=== PATIENT | male | born 1980 | race Caucasian/White ===

== ENCOUNTER 2017-01-13 22:32 | Inpatient (IN) | payer OTHER ==
--- NOTE | ~2017-01-13 | PN ---
Unit #: [id number] #: [id number] Patient: EARNEST JOSE [id number] [facility] [address] [place] [address] [id number] MR#: [id number] NAME: EARNEST JOSE. ROOM: P174 Age: 36 Sex: M Admission Date: 01/14/2017 : 1980 Attending Physician: Krystal Schmidt M.D. Admitting Physician: Krystal Schmidt M.D. Primary Care Physician: Primary Care Physician Elenita CHAKRABORTY PROGRESS NOTES DATE January 19, 2017 DISCUSSION Mr. Jose is a 36-year-old white male, who was seen today and chart was reviewed and the case was discussed with the staff. He has been anxious, withdrawn, and rather seclusive to himself. Meanwhile, he has been cooperative with the treatment recommendations and he has been taking the medications and tolerating them fairly well with no reported side effects. MENTAL STATUS EXAMINATION Young white male, who was casually dressed with fair personal hygiene and appears to be in no acute distress or discomfort. He was awake and alert on interaction with intact orientation. His mood is anxious with a congruent affect. He denies any suicidal or homicidal ideations, and also denies any auditory or visual hallucinations. His insight and judgment remain slightly impaired. TREATMENT PLAN 1. We will continue him on his current medications and treatment protocol, and will monitor his response to the medications, and make further adjustments as needed. 2. We will continue to followup. Dictated by... Emilia Desir/meghan TD: 01/20/2017 12:44 JOB #: [id number] Unit #: [id number] #: [id number] Patient: EARNEST JOSE PROGRESS NOTES Page 1 of 1 X Krystal Schmidt MD PROGRESS NOTE
--- NOTE | ~2017-01-13 | PN ---
Unit #: [id number] #: [id number] Patient: EARNEST JOSE [id number] [facility] [address] [place] [address] [id number] I MR#: [id number] NAME: EARNEST JOSE. ROOM: P174 Age: 36 Sex: M Admission Date: 01/14/2017 : 1980 Attending Physician: Krystal Schmidt M.D. Admitting Physician: Emilia Desir PROGRESS NOTES DATE OF SERVICE: 01/17/2017 SUBJECTIVE Mr. Jose is a 36-year-old white male, who was seen today and chart was reviewed and case was discussed with the staff. He has been anxious, withdrawn, and seclusive to himself, and appears to be in some distress he has been taking medications and tolerating them fairly well with no reported side effects. MENTAL STATUS EXAMINATION Young white male, who was casually dressed with marginal personal hygiene, appears to be in no acute distress or discomfort. He was awake and alert with impaired attention and concentration. His mood was anxious with congruent affect. His speech was slow and restricted in content. He denies any suicidal or homicidal ideation and also denies any auditory or visual hallucinations. His insight and judgment remain slightly impaired. TREATMENT PLAN 1. We will continue him on his current medications and treatment protocol. We will monitor his response to medications and make further adjustments as needed. 2. We will continue to follow up. Dictated by... Emilia Desir/juanita TD: 01/18/2017 15:32 JOB #: [id number] [facility] PROGRESS NOTES Page 1 of 1 X Krystal Schmidt MD PROGRESS NOTE
--- NOTE | ~2017-01-13 | PN ---
Unit #: [id number] #: [id number] Patient: EARNEST JOSE [id number] [facility] [address] [place] [address] [id number] MR#: [id number] NAME: EARNEST JOSE. ROOM: P174 Age: 36 Sex: M Admission Date: 01/14/2017 : 1980 Attending Physician: Krystal Schmidt M.D. Admitting Physician: Emilia Desir PROGRESS NOTES DATE OF SERVICE: 01/15/2017 SUBJECTIVE Mr. Jose 36-year-old white male with substance abuse and mood disorder, who was seen today and chart was reviewed, and case was discussed with the staff. He was seen to be anxious, withdrawn, and rather seclusive to himself. Meanwhile, he has been cooperative with treatment recommendations and has been taking the medications and start describes himself to be in distress and discomfort. MENTAL STATUS EXAMINATION Young white male who was casually dressed with marginal personal hygiene, appears to be in distress and discomfort. He was awake and alert with impaired attention and concentration. His mood was anxious with a congruent affect. He denies any suicidal or homicidal ideations. His insight and judgment remain slightly impaired. TREATMENT PLAN 1. We will continue him on his current medications and treatment protocol. We will monitor his response and make further adjustments as needed. 2. We will continue to follow up. Dictated by... Emilia Desir/juanita TD: 01/16/2017 15:31 JOB #: [id number] [facility] PROGRESS NOTES Page 1 of 1 X Krystal Schmidt MD PROGRESS NOTE
--- NOTE | ~2017-01-13 | PN ---
Unit #: [id number] #: [id number] Patient: EARNEST JOSE [id number] [facility] [address] [place] [address] [id number] I MR#: [id number] NAME: EARNEST JOSE. ROOM: P174 Age: 36 Sex: M Admission Date: 01/14/2017 : 1980 Attending Physician: Krystal Schmidt M.D. Admitting Physician: Krystal Schmidt M.D. Primary Care Physician: Primary Care Physician Elenita FRENCH NOTES DATE 01/16/2017 DISCUSSION Mr. Jose is a 36-year-old, white male who was seen today and chart was reviewed and case was discussed with the staff. He has been anxious, withdrawn and rather seclusive to himself. He appears to be in some distress and discomfort as he goes through detox. Meanwhile, he has been cooperative with treatment recommendations. He has been taking medications and tolerating them fairly well with no reported side effects. MENTAL STATUS EXAM Young white male who was casually dressed with marginal personal hygiene, appears to be in some distress and discomfort. He was awake and alert with impaired attention and concentration. His mood was anxious with congruent affect. His speech was slow restricted in content. He denies any suicidal or homicidal ideation. Also, denies any auditory or visual hallucinations. His insight and judgement remains slightly impaired. TREATMENT PLAN 1. We will continue him on his current treatment protocol. We will monitor his response to the medication and make further adjustments as needed. 2. We will continue to follow up. Dictated by... Emilia Desir/mirna TD: 01/17/2017 08:01 JOB #: [id number] Unit #: [id number] #: [id number] Patient: EARNEST JOSE PEADAMIEN PROGRESS NOTES Page 1 of 1 X Krystal Schmidt MD PROGRESS NOTE
--- NOTE | ~2017-01-13 | PN ---
Unit #: [id number] #: [id number] Patient: EARNEST JOSE [id number] [facility] [address] [place] [address] [id number] I MR#: [id number] NAME: EARNEST JOSE. ROOM: P174 Age: 36 Sex: M Admission Date: 01/14/2017 : 1980 Attending Physician: Krystal Schmidt M.D. Admitting Physician: Krystal Schmidt M.D. Primary Care Physician: Primary Care Physician Elenita FRENCH NOTES DATE 01/20/2017 DISCUSSION Mr. Jose is a 36-year-old, white man who was seen today and chart was reviewed and case was discussed with the staff. He has been anxious, withdrawn and rather seclusive to himself. Meanwhile, he has been cooperative with treatment recommendation. He has been taking medications and tolerating them fairly well with no reported side effects. MENTAL STATUS EXAM Young white male who was casually dressed with fair personal hygiene, appears to be in no acute distress or discomfort. He was awake and alert on interaction with intact orientation. His mood was anxious with congruent affect. He denies any suicidal or homicidal ideation. Also, denies any auditory or visual hallucinations. His insight and judgement remains slightly impaired. TREATMENT PLAN 1. We will continue him on his current medications and treatment protocol. We will monitor his response to the medication and make further adjustments as needed. 2. We will continue to follow up. Dictated by... Emilia Desir/mirna TD: 01/20/2017 23:57 JOB #: [id number] Unit #: [id number] #: [id number] Patient: EARNEST JOSE [facility] PROGRESS NOTES Page 1 of 1 X Krystal Schmidt MD PROGRESS NOTE
--- NOTE | ~2017-01-13 | PA ---
Unit #: [id number] #: [id number] [facility] [id number] [facility] [address] [place] [address] [id number] MR#: [id number] NAME: EARNEST JOSE. ROOM: P174 Age: 36 Sex: M Admission Date: 01/14/2017 : 1980 Date of Assessment: 01/14/2017 Attending Physician: Krystal Schmidt M.D. Admitting Physician: Krystal Schmidt M.D. Primary Care Physician: Primary Care Physician No PSYCHIATRIC ASSESSMENT IDENTIFYING DATA Mr. Jose is a 36-year-old white male, who is a resident of [place], [place], and was self-referred to the hospital on voluntary basis. CHIEF COMPLAINT "Relapse on the day I am being discharged from this facility." HISTORY OF PRESENT ILLNESS Mr. Jose is a 36-year-old white male, who reported that he was discharged from this facility in June 21, 2016 and relapsed on the same day in July. He went to inpatient for 30 days for rehab level of care and then he relapsed a month ago using half a gram daily of methamphetamine using heroin 1 to 2 times a week to help come down off meth and reports being depressed and feeling hopeless and helpless and wanting to , then keeps using drugs again and reports that he was kicked out of the house by his due to his drug use and he has tried to get a guide to use his gun to end his life, when he charged towards him, wanting to , and the patient reports that he has had thoughts of ending his life by using heroin to never wake up and does report increased depression, anxiety, feelings of hopelessness and helplessness, and suicidal ideation with intent and plan and as such, recommendation for inpatient level of care for safety and stabilization was made. SUBSTANCE ABUSE HISTORY The patient reports history of experimentation abuse of cannabis, cocaine, acid, opioids, and methamphetamine, and currently methamphetamine has been his drug of choice and reports that he has been using IV methamphetamine and has been going on binges. PAST PSYCHIATRIC HISTORY The patient has had a history of inpatient chemical dependency treatment at [facility] several times in addition to being at review of the medical records indicate that currently he is not active in treatment program, and is not seeing a psychiatrist, and is not taking any psychotropic medications. PAST MEDICAL HISTORY Hepatitis C, chronic back pain, herniated disc, and spinal stenosis. ALLERGIES No known medication allergies. Unit #: [id number] #: [id number] Patient: EARNEST JOSE PERSONAL AND SOCIAL HISTORY A 36-year-old white male, who reports that he is and and currently describes himself to be homeless and has poor social support system. MENTAL STATUS EXAMINATION Young white male, who was casually dressed with fair personal hygiene, appears to be in no acute distress or discomfort. He was awake and alert on interaction with intact orientation to time, place, and person. His mood was anxious and depressed with a congruent affect. His speech was slow and restricted in content. He reports having suicidal ideations, but denies any homicidal ideations, and also denies any auditory or visual hallucinations. His insight and judgment remain significantly impaired. DIAGNOSTIC IMPRESSION Psychiatric: Major depressive disorder, recurrent, moderate, without psychotic features; methamphetamine dependence, moderate; opioid dependence, moderate. Medical: Hepatitis C, herniated disc, chronic pain, spinal stenosis. Stressors: Moderate psychosocial stressors. TREATMENT PLAN 1. The patient has presented with history of substance abuse and mood disorder, and has been decompensating and will need inpatient hospitalization for safety and stabilization. We will start him back on his home medications. We will adjust the medications and monitor response. 2. Supportive therapy was provided to the patient. 3. Safe, structured, and nourishing environment will be reported. ESTIMATED LENGTH OF STAY 5 to 7 days. ABILITY TO HELP SELF Limited. WILLINGNESS TO HELP SELF The patient appears to be willing to help self. STRENGTHS 1. Communicative. 2. Cooperative. PROBLEMS 1. Chronic dysphoric symptoms. 2. Poor social support system. DISCHARGE CRITERIA This will be contingent upon the patient's ability to show resolution of his depression and anxiety and his ability to stay safe to himself, particularly after discharge from the hospital. Dictated by..Emilia Foster/juanita TD: 01/14/2017 06:54 Unit #: [id number] #: [id number] Patient: EARNEST JOSE JOB #: [id number] PSYCHIATRIC ASSESSMENT Page 1 of 1 X Krystal Schmidt MD PSYCHIATRIC ASSESSMENT
--- NOTE | ~2017-01-13 | HP ---
Unit #: [id number] #: [id number] Patient: EARNEST JOSE [id number] [place] [address] [id number] I MR#: [id number] NAME: EARNEST JOSE. ROOM: P174 Age: 36 Sex: M Admission Date: 01/14/2017 : 1980 Attending Physician: Krystal Schmidt M.D. Admitting Physician: Krystal Schmidt M.D. Primary Care Physician: Primary Care Physician No HISTORY AND PHYSICAL HISTORY OF PRESENT ILLNESS Earnest is a 36 year old admitted to [facility] because of his continued polysubstance abuse. He has had numerous admissions to this facility for the same. PAST MEDICAL HISTORY 1. Long history of illicit substance abuse to include IV drugs. 2. Hepatitis C. 3. Obesity. 4. Degenerative disc disease. PAST SURGICAL HISTORY 1. Cholecystectomy. 2. Right knee. 3. Left elbow. ALLERGIES No known drug allergies. SOCIAL HISTORY Smokes 1 pack per day. Denies alcohol. Admits to a long history of illicit substance abuse to include heroin and methamphetamine. FAMILY HISTORY Medically noncontributory. REVIEW OF SYSTEMS CONSTITUTIONAL: No fever or chills. HEENT: Denies any sore throat, ear pain or runny nose. CARDIOVASCULAR: Denies chest pain, irregular heart rhythm or palpitations. CHEST: Denies shortness of breath or cough. No hemoptysis. GASTROINTESTINAL: Denies nausea, vomiting, diarrhea or chronic constipation. ENDOCRINE: Denies history of increased thirst or urination. No recent significant weight loss or gain. GENITOURINARY: Denies dysuria, frequency, or hematuria. SKIN: Denies any rashes. HEMATOLOGIC: Denies history of increased bleeding or bruising. MUSCULOSKELETAL: Denies any hot, swollen joints. No generalized muscle pain. NEUROLOGIC: Denies problems with vision or speech. No frequent, severe headaches. No numbness, tingling or weakness in any extremities. Denies loss of bladder or bowel control. Unit #: [id number] #: [id number] Patient: EARNEST JOSE CURRENT MEDICATIONS 1. Wellbutrin XL 150 mg q.a.m. 2. Neurontin 800 mg t.i.d. 3. Milk of Magnesia p.r.n. 4. Maalox p.r.n. 5. Tylenol p.r.n. PHYSICAL EXAMINATION GENERAL: Alert, well-nourished, no apparent distress. VITAL SIGNS: Blood pressure 140/100, heart rate 80, respirations 16, temperature 98.6. WEIGHT: 210. HEIGHT: 5 feet 11 inches. SKIN: Warm and dry without rash or lesion. HEENT: Normocephalic. TMs not viewed. Oral and nasal passages clear. Conjunctivae clear. PERRLA. EOMs intact. NECK: Supple without lymphadenopathy or thyromegaly. HEART: Regular rate and rhythm without murmur. LUNGS: Clear. ABDOMEN: Soft, nontender. : Not done. EXTREMITIES: No evidence of cyanosis, clubbing or edema. Moves all without focal deficit. NEUROLOGICAL: Grossly within normal limits. Cranial Nerves: II: Visual benavidez are intact. III, IV AND : Extraocular movements are intact. Pupils are equal, round and reactive to light. V: Facial sensation is grossly normal. VII: Facial movements and expression are normal. VIII: Auditory acuity grossly intact. IX, X: Uvula is midline. Phonation is normal. XI: Patient shrugs shoulders and turns head normally. XII: Tongue protrudes in the midline. Sensory and Motor Function: Sensory and motor sensation is grossly normal. Motor: moves all extremities well. Coordination: Gait is normal. Deep Tendon Reflexes: Intact. IMPRESSION 1. Psychiatric admission. 2. High blood pressure, although he gives no prior history on admission. RECOMMENDATIONS PSYCHIATRIC: Per psychiatrist. MEDICAL: 1. See no contraindications to participate in facility's activities. 2. Monitor blood pressure q. shift. If remains high, will need to address. MEDICAL PROGNOSIS Good. MEDICAL CONDITION Stable. Dictated by... Unit #: [id number] #: [id number] Patient: EARNEST JOSE Osmany Reyes-Dileep. for Emilia Valencia/aiden TD: 01/14/2017 21:22 JOB #: [id number] HISTORY AND PHYSICAL Page 1 of 1 X Symone Hoyt X HISTORY AND PHYSICAL
--- NOTE | ~2017-01-13 | DS ---
Unit #: [id number] #: [id number] [facility]: [facility] [id number] [facility] [address] [place] [address] [id number] MR#: [id number] NAME: EARNEST JOSE. ROOM: P174 Age: 36 Sex: M Admission Date: 01/14/2017 : 1980 Discharge Date: 01/21/2017 Attending Physician: Krystal Schmidt M.D. Primary Care Physician: Primary Care Physician No DISCHARGE SUMMARY IDENTIFYING DATA Mr. Dunham is a 36-year-old white male, who is a resident of [place], [place] and was self-referred to the hospital on a voluntary basis. DISCHARGE DIAGNOSES Psychiatric: Major depressive disorder, recurrent, moderate, without psychotic features; methamphetamine dependence, moderate; opioid dependence, moderate. Medical: Hepatitis C, herniated disks, chronic pain, and spinal stenosis. Stressors: Mild psychosocial stressors. HISTORY OF PRESENT ILLNESS Please see initial psychiatric evaluation for details. PAST PSYCHIATRIC HISTORY Please see initial psychiatric evaluation for details. PAST MEDICAL HISTORY Please see initial psychiatric evaluation for details. HOSPITAL COURSE The [facility] and was oriented to the hospital environment. Routine p.r.n. medications were initiated, and he was started back on his home medications and detox protocol was initiated as well and Wellbutrin XL was initiated at 150 mg a day. He was seen to be anxious, withdrawn, and rather seclusive to himself and was not coming out, socializing, interacting, or participating in treatment related activities and once he started feeling better, he was pushing to leave and was not really showing much motivation towards treatment; however, he was denying any suicidal ideations, intent, or plan and was not seen to be danger to self or anyone else, and as such, it was decided that he will be discharged home and will continue treatment on an outpatient basis. DISCHARGE MEDICATIONS Wellbutrin XL 150 mg in the morning. DISCHARGE CONDITION Stable. PROGNOSIS Fair. Unit #: [id number] #: [id number] Patient: EARNEST JOSE Dictated by... Krystal Schmidt M.D. IAA/modl TD: 01/21/2017 06:22 JOB #: [id number] DISCHARGE SUMMARY Page 1 of 1 X Krystal Schmidt MD DISCHARGE SUMMARY
--- NOTE | ~2017-01-13 | PN ---
Unit #: [id number] #: [id number] Patient: EARNEST JOSE [id number] [facility] [address] [place] [address] [id number] MR#: [id number] NAME: EARNEST JOSE. ROOM: P174 Age: 36 Sex: M Admission Date: 01/14/2017 : 1980 Attending Physician: Krystal Schmidt M.D. Admitting Physician: Krystal Schmidt M.D. Primary Care Physician: Primary Care Physician Elenita CHAKRABORTY PROGRESS NOTES DATE 01/18/2017 DISCUSSION Mr. Craft is a 36-year-old, white male who was seen today and chart was reviewed and case was discussed with the staff. He has been anxious, withdrawn and was seclusive to himself as he has been laying in his bed and not appear to socializing and interacting very much. He has been taking the medication and tolerating them fairly well. MENTAL STATUS EXAM Young white male who was casually dressed with fair personal hygiene, appears to be in no acute distress or discomfort. He was awake and alert on interaction with intact orientation. His mood was anxious with congruent affect. He denies any suicidal or homicidal ideation. His insight and judgment remains slightly impaired. TREATMENT PLAN 1. We will continue him on his current protocol. We will monitor his response and make further adjustments as needed. 2. We will continue to follow up. Dictated by... Emilia Desir/mirna TD: 01/19/2017 04:14 JOB #: [id number] Unit #: [id number] #: [id number] Patient: EARNEST JOSE PEADAMIEN PROGRESS NOTES Page 1 of 1 X Krystal Schmidt MD PROGRESS NOTE
[2017-01-14 10:06] LABS: URINE APPEARANCE CLEAR; URINE BLOOD NEG (NEG); URINE COLOR DK YELLOW; URINE GLUCOSE NEG (NEG); URINE KETONE TRACE (NEG); URINE LEUKOCYTE ESTERASE NEG (NEG); URINE NITRATE NEG (NEG); URINE PH 5.5 (5-8); URINE PROTEIN NEG (NEG); URINE SPECIFIC GRAVITY 1.043 (1.003-1.035)
[2017-01-14 10:15] LABS: URINE BILIRUBIN NEG (NEG)
[2017-01-14 10:25] LABS: AMPHETAMINE POS (NEG); BARBITURATES NEG (NEG); BENZODIAZEPINES NEG (NEG); COCAINE NEG (NEG); MARIJUANA NEG (NEG); OPIATES NEG (NEG); TRICYCLIC ANTIDEPRESSANTS NEG (NEG); U METHADONE NEG (NEG)
== END 2017-01-21 08:15 | DRG 885 ==
LOC: P1E 01-14 02:18
PROVIDERS: Psychiatry & Neurology Psychiatry
PROC: HZ2ZZZZ Detoxification Services for Substance Abuse Treatment (ICD-10-PCS; principal; 2017-01-14)
DX: F33.1 Major depressive disorder, recurrent, moderate (principal); F11.20 Opioid dependence, uncomplicated; F15.20 Other stimulant dependence, uncomplicated; B19.20 Unspecified viral hepatitis C without hepatic coma; G89.29 Other chronic pain; M48.00 Spinal stenosis, site unspecified; Z90.49 Acquired absence of other specified parts of digestive tract; F17.210 Nicotine dependence, cigarettes, uncomplicated
CPT/HCPCS: 80307; 81003

== ENCOUNTER 2017-04-15 11:00 | Inpatient (IN) | payer OTHER ==
[~2017-04-15] VITALS: Ht 180.3 cm; Wt 90.7 kg
--- NOTE | ~2017-04-15 | PN ---
Unit #: [id number] #: [id number] Patient: EARNEST JOSE [id number] [facility] [address] [place] [address] [id number] MR#: [id number] NAME: EARNEST JOSE. ROOM: P180 Age: 36 Sex: M Admission Date: 04/15/2017 : 1980 Attending Physician: Krystal Schmidt M.D. Admitting Physician: Krystal Schmidt M.D. Primary Care Physician: Primary Care Physician Elenita CHAKRABORTY PROGRESS NOTES DATE 04/16/2017 DISCUSSION Mr. Jose is a 36-year-old white male with substance abuse and mood disorder who was seen today and chart was reviewed and case was discussed with the staff. He remains anxious, withdrawn, depressed and rather seclusive to himself with blunted affect and minimal interaction. Meanwhile, he has been taking medications and tolerating them fairly well with no reported side effects. MENTAL STATUS EXAMINATION Young white male who was casually dressed with fair personal hygiene and appears to be in no acute distress or discomfort. He was awake and alert on interaction with intact orientation. His mood was anxious and depressed with congruent affect. His speech is slow and goal-directed. He reports having suicidal ideation but denies any homicidal ideations. His insight and judgement remains slightly impaired. TREATMENT PLAN 1. Will continue on his current medications and treatment protocol. Will monitor his response to the medications and make further adjustments as needed. 2. Will continue to follow up. Dictated by... Emilia Desir/aiden TD: 04/16/2017 17:44 JOB #: [id number] Unit #: [id number] #: [id number] Patient: EARNEST JOSE PEADAMIEN PROGRESS NOTES Page 1 of 1 X Krystal Schmidt MD PROGRESS NOTE
--- NOTE | ~2017-04-15 | DS ---
Unit #: [id number] #: [id number] [facility]: [facility] [id number] [facility] [address] [place] [address] [id number] MR#: [id number] NAME: EARNEST OJSE. ROOM: P173 Age: 36 Sex: M Admission Date: 04/15/2017 : 1980 Discharge Date: 04/20/2017 Attending Physician: Krystal Schmidt M.D. Primary Care Physician: Primary Care Physician No DISCHARGE SUMMARY IDENTIFYING DATA Mr. Jose is a 36-year-old white male, who is known to me from previous encounters, self-referred to the hospital on a voluntary basis. HISTORY OF PRESENT ILLNESS Please see initial psychiatric evaluation for details. PAST PSYCHAITRIC HISTORY Please see initial psychiatric evaluation for details. PAST MEDICAL HISTORY Please see initial psychiatric evaluation for details. HOSPITAL COURSE The patient was admitted to the Adult Chemical Dependence Unit at [facility] and was oriented to the hospital environment. Routine p.r.n. medications are initiated and he was started back on his home medications and was closely monitored. He was anxious, withdrawn, and as such his Wellbutrin was increased to 300 mg in the morning. He was taking medications regularly and was tolerating them fairly well and was able to come out of the detox without any complications with improvement in his depression and anxiety, and denying any suicidal ideations, intent, or plan. He was not seen to be a danger to himself or anyone else, and was willing to continue treatment on an outpatient basis, and as such it was decided that he would be maintained on his current medications and will be discharged and will continue treatment on outpatient basis. DISCHARGE DIAGNOSES Psychiatric: Vinton I Major depressive disorder, recurrent, moderate, without psychotic features. Opiate dependence, moderate, in acute withdrawal. Methamphetamine abuse, moderate. Vinton II Vinton III None. Vinton IV Mild psychosocial stressors. Vinton V DISCHARGE MEDICATIONS Remeron 15 mg at bedtime for depression CONDITION AT DISCHARGE Unit #: [id number] #: [id number] Patient: EARNEST JOSE Stable. PROGNOSIS Fair. Dictated by... Emilia Desir/meghan TD: 04/22/2017 07:32 JOB #: [id number] DISCHARGE SUMMARY Page 1 of 1 X Krystal Schmidt MD DISCHARGE SUMMARY
--- NOTE | ~2017-04-15 | HP ---
Unit #: [id number] #: [id number] Patient: EARNEST JOSE [id number] [place] [address] [id number] I MR#: [id number] NAME: EARNEST JOES. ROOM: P180 Age: 36 Sex: M Admission Date: 04/15/2017 : 1980 Attending Physician: Krystal Schmidt M.D. Admitting Physician: Krystal Schmidt M.D. Primary Care Physician: Primary Care Physician No HISTORY AND PHYSICAL HISTORY OF PRESENT ILLNESS Earnest is a 36 year old admitted to [facility] because of his continued drug use. He has had other admissions to this facility. PAST MEDICAL HISTORY 1. Long history of illicit substance abuse to include IV heroin. 2. Hepatitis C. 3. Obesity. 4. Degenerative disc disease. PAST SURGICAL HISTORY 1. Colon cystectomy. 2. Right knee. 3. Left knee. ALLERGIES No known drug allergies. SOCIAL HISTORY Smokes one pack per day. Denies alcohol. Admits to a long history of illicit substance abuse to include IV drugs. FAMILY HISTORY Medically noncontributory. REVIEW OF SYSTEMS CONSTITUTIONAL: No fever or chills. HEENT: Denies any sore throat, ear pain or runny nose. CARDIOVASCULAR: Denies chest pain, irregular heart rhythm or palpitations. CHEST: Denies shortness of breath or cough. No hemoptysis. GASTROINTESTINAL: Denies nausea, vomiting, diarrhea or chronic constipation. ENDOCRINE: Denies history of increased thirst or urination. No recent significant weight loss or gain. GENITOURINARY: Denies dysuria, frequency, or hematuria. SKIN: Denies any rashes. HEMATOLOGIC: Denies history of increased bleeding or bruising. MUSCULOSKELETAL: Denies any hot, swollen joints. No generalized muscle pain. NEUROLOGIC: Denies problems with vision or speech. No frequent, severe headaches. No numbness, tingling or weakness in any extremities. Denies loss of bladder or bowel control. Unit #: [id number] #: [id number] Patient: EARNEST JOSE CURRENT MEDICATIONS 1. Milk of Magnesia p.r.n. 2. Maalox p.r.n. 3. Tylenol p.r.n. 4. Wellbutrin XL 150 mg q day 5. Nicotine patch 14 mg q day PHYSICAL EXAMINATION GENERAL: Alert, well-nourished, in no apparent distress. VITAL SIGNS: Blood pressure 156/104, heart rate 80, respirations 16, temperature 98.6. WEIGHT: 200. HEIGHT: 5 foot 11 inches. SKIN: Warm and dry without rash or lesion. HEENT: Normocephalic. TMs not viewed. Oral and nasal passages clear. Conjunctivae clear. Pupils equal, round and reactive to light and accommodation. Extraocular movements intact. NECK: Supple without lymphadenopathy or thyromegaly. HEART: Regular rate and rhythm without murmur. LUNGS: Clear. ABDOMEN: Soft, nontender. : Not done. EXTREMITIES: No evidence of cyanosis, clubbing or edema. Moves all extremities without focal deficit. NEUROLOGICAL: Grossly within normal limits. Cranial Nerves: II: Visual benavidez are intact. III, IV AND : Extraocular movements are intact. Pupils are equal, round and reactive to light. V: Facial sensation is grossly normal. VII: Facial movements and expression are normal. VIII: Auditory acuity grossly intact. IX, X: Uvula is midline. Phonation is normal. XI: Patient shrugs shoulders and turns head normally. XII: Tongue protrudes in the midline. Sensory and Motor Function: Sensory and motor sensation is grossly normal. Motor: moves all extremities well. Coordination: Gait is normal. Deep Tendon Reflexes: Intact. IMPRESSION Psychiatric admission. RECOMMENDATIONS PSYCHIATRIC: Per psychiatrist. MEDICAL: I see no contraindications to participating in facility's activities. MEDICAL PROGNOSIS Good. MEDICAL CONDITION Stable. Dictated by... Symone Hoyt P.A.-C. for Unit #: [id number] #: [id number] Patient: EARNEST JOSE Emilia Valencia/mirna TD: 04/15/2017 22:40 JOB #: [id number] HISTORY AND PHYSICAL Page 1 of 1 X Symone Hoyt HISTORY AND PHYSICAL
--- NOTE | ~2017-04-15 | PA ---
Unit #: [id number] #: [id number] Patient: EARNEST JOSE [id number] [facility] [address] [place] [address] [id number] I MR#: [id number] NAME: EARNEST JOSE ROOM: P173 Age: 36 Sex: M Admission Date: 04/15/2017 : 1980 Date of Assessment: 04/15/2017 Attending Physician: Krystal Schmidt M.D. Admitting Physician: Krystal Schmidt M.D. Primary Care Physician: Primary Care Physician No PSYCHIATRIC ASSESSMENT DATE OF SERVICE 04/15/2017. IDENTIFYING DATA Mr. Dunham is a 36-year-old, , white male, who is known to me from previous encounter, was self-referred to the hospital on voluntary basis. CHIEF COMPLAINT "I get so depressed and I attempted suicide last week." HISTORY OF PRESENT ILLNESS Mr. Dunham is a 36-year-old, white male, with a history of mood disorder, who was brought to the hospital. Upon presentation, reports increasing depression, suicidal ideation and attempted last week "I've been getting high about 3 or 4 days straight on methamphetamine, the last time I was at [facility] last week, I did not know what was going on and I was out of it and did not know what was going on. I just feel really depressed. I just feel like killing myself. I'm trying to get into a long-term rehab and I'm just tired of living life like this. I'm currently suicidal and I have a plan to overdose on heroin. I relapsed right after I got out of the hospital. I was using about half a gram a day of methamphetamine, a couple of lines of heroin, about a quarter of the Suboxone. I last used meth yesterday, I cannot remember for the heroin or Suboxone. I've not been sleeping and eating and I did start to have some withdrawal symptoms last week." The patient does report increasing depression, anxiety, irritability, restlessness, feelings of hopelessness and helplessness, and suicidal ideations with intent and plan and as such, recommendation for inpatient level of care for safety and stabilization was made and the patient was stepped up to the inpatient unit. SUBSTANCE ABUSE HISTORY The patient reports history of opioids and methamphetamine abuse and dependence and has been using both of those on regular basis. PAST PSYCHIATRIC HISTORY The patient has had a history of inpatient psychiatric hospitalization for chemical dependency treatment at [facility] and has also been diagnosed and treated for mood disorder. He is currently on Wellbutrin, but does not appear that he is taking the medication on a regular basis. PAST MEDICAL HISTORY No acute or chronic medical illnesses. Unit #: [id number] #: [id number] Patient: EARNEST JOSE ALLERGIES No known medication allergies. PERSONAL AND SOCIAL HISTORY A 36-year-old white male, who reports that he is and lives at home with his family and has fairly decent social support system. MENTAL STATUS EXAMINATION Young white male, who was casually dressed with fair personal hygiene, appears to be in no acute distress or discomfort. He was awake and alert on interaction with intact orientation to time, place, and person. His mood was anxious and depressed with a congruent affect. His speech was slow and restricted in content. His thought processes were disorganized with some looseness of associations and flight of ideas. His insight and judgment remain significantly impaired. DIAGNOSTIC IMPRESSION Psychiatric: Major depressive disorder, recurrent, moderate, without psychotic features; methamphetamine dependence, moderate; opioid dependence, moderate. Medical: None. Stressors: Moderate psychosocial stressors. TREATMENT PLAN 1. The patient has presented with a history of mood disorder and substance abuse and has been decompensating and will need inpatient hospitalization for safety and stabilization and detoxification. We will start him on detox protocol. We will also start him back on his home medications. We will adjust the medications and monitor response. 2. Supportive therapy was provided to the patient. 3. Safe, structured, and nourishing environment will be provided. ESTIMATED LENGTH OF STAY 4 to 5 days. ABILITY TO HELP SELF Limited. WILLINGNESS TO HELP SELF The patient appears to be willing to help self. STRENGTHS 1. Communicative. 2. Cooperative. PROBLEMS 1. Chronic dysphoric symptoms. 2. Chronic chemical dependency. 3. Poor social support system. DISCHARGE CRITERIA This will be contingent upon the patient's ability to show resolution of his depression and anxiety and his ability to stay safe to himself, particularly after discharge from the hospital. Unit #: [id number] #: [id number] Patient: EARNEST JOSE Dictated by... Emilia Desir/juanita TD: 04/16/2017 06:56 JOB #: [id number] PSYCHIATRIC ASSESSMENT Page 1 of 1 X Krystal Schmidt MD PSYCHIATRIC ASSESSMENT
--- NOTE | ~2017-04-15 | PN ---
Unit #: [id number] #: [id number] Patient: EARNEST JOSE [id number] [facility] [address] [place] [address] [id number] I MR#: [id number] NAME: EARNEST JOSE. ROOM: P173 Age: 36 Sex: M Admission Date: 04/15/2017 : 1980 Attending Physician: Krystal Schmidt M.D. Admitting Physician: Krystal Schmidt M.D. Primary Care Physician: Primary Care Physician Elenita FRENCH NOTES DATE 04/18/2017 DISCUSSION Mr. Jose is a 36-year-old white male who was seen today and chart was reviewed and case was discussed with the staff. He has been anxious, withdrawn and rather seclusive to himself. Meanwhile, he has been cooperative with treatment recommendations and has been taking medications and tolerating them fairly well with no reported side effects. MENTAL STATUS EXAMINATION Young white male who was casually dressed with fair personal hygiene and appears to be in no acute distress or discomfort. He was awake and alert on interaction with intact orientation. His mood was anxious with congruent affect. His speech is slow and goal-directed. He denies any suicidal or homicidal ideation and also denies any auditory or visual hallucinations. His insight and judgement remains slightly impaired. TREATMENT PLAN 1. Will continue on his current medications and treatment protocol. Will monitor his response to the medications and make further adjustments as needed. 2. Will continue to follow up. Dictated by... Emilia Desir/aiden TD: 04/18/2017 17:20 JOB #: [id number] Unit #: [id number] #: [id number] Patient: EARNEST JOSE [facility] PROGRESS NOTES Page 1 of 1 X Krystal Schmidt MD PROGRESS NOTE
--- NOTE | ~2017-04-15 | PN ---
Unit #: [id number] #: [id number] Patient: EARNEST JOSE [id number] [facility] [address] [place] [address] [id number] I MR#: [id number] NAME: EARNEST JOSE. ROOM: P173 Age: 36 Sex: M Admission Date: 04/15/2017 : 1980 Attending Physician: Krystal Schmidt M.D. Admitting Physician: Krystal Schmidt M.D. Primary Care Physician: Primary Care Physician Elenita CHAKRABORTY PROGRESS NOTES DATE OF SERVICE 04/17/2017 DISCUSSION Mr. Dunham is a 36-year-old white male who was seen today. Chart was reviewed and case was discussed with the staff. He has been anxious, withdrawn, and rather seclusive to himself. Meanwhile, he has been cooperative with the treatment recommendations and has been taking the medications and tolerating them fairly well with no reported side effects. MENTAL STATUS EXAMINATION Young white male who is casually dressed with fair personal hygiene, appears to be in no acute distress or discomfort. He was awake and alert on interaction with intact orientation. His mood is anxious and depressed with congruent affect. His speech is slow and goal-directed. He denies any suicidal or homicidal ideations and also denies any auditory or visual hallucinations. His insight and judgment remain slightly impaired. TREATMENT PLAN 1. We will continue him on his current medications and treatment protocol. We will monitor his response and make further adjustments as needed. 2. We will continue to follow up. Dictated by... Emilia Desir/maria ines TD: 04/17/2017 08:15 JOB #: [id number] Unit #: [id number] #: [id number] Patient: EARNEST JOSE PROGRESS NOTES Page 1 of 1 X Krystal Schmidt MD PROGRESS NOTE
--- NOTE | ~2017-04-15 | PN ---
Unit #: [id number] #: [id number] Patient: EARNEST JOSE [id number] [facility] [address] [place] [address] [id number] MR#: [id number] NAME: EARNEST JOSE. ROOM: P173 Age: 36 Sex: M Admission Date: 04/15/2017 : 1980 Attending Physician: Krystal Schmidt M.D. Admitting Physician: Krystal Schmidt M.D. Primary Care Physician: Primary Care Physician Elenita FRENCH NOTES DATE 04/19/2017 DISCUSSION Mr. Jose is a 36-year-old, white male who was seen today and chart was reviewed and case was discussed with the staff. He has been anxious, withdrawn, depressed and rather seclusive to himself. Meanwhile, he has been cooperative with the treatment recommendations. He has been taking the medication and tolerating them fairly well . MENTAL STATUS EXAM Young white male who was casually dressed with fair personal hygiene, appears to be in no acute distress or discomfort. He was awake and alert on interaction with intact orientation. His mood was anxious with congruent affect. His speech was slow and goal directed. He denies any suicidal or homicidal ideation. Also, denies any auditory or visual hallucinations. His insight and judgement remains slightly impaired. TREATMENT PLAN 1. We will continue him on his current medications and treatment protocol. We will monitor his response to the medications and make further adjustments as needed. 2. We will continue to follow up. Dictated by... Emilia Desir/mirna TD: 04/20/2017 05:31 JOB #: [id number] Unit #: [id number] #: [id number] Patient: EARNEST JOSE PROGRESS NOTES Page 1 of 1 X Krystal Schmidt MD PROGRESS NOTE
[2017-04-17 10:21] LABS: URINE APPEARANCE CLEAR; URINE BILIRUBIN NEG (NEG); URINE BLOOD NEG (NEG); URINE COLOR YELLOW; URINE GLUCOSE NEG (NEG); URINE KETONE NEG (NEG); URINE LEUKOCYTE ESTERASE NEG (NEG); URINE NITRATE NEG (NEG); URINE PH 6.5 (5-8); URINE PROTEIN NEG (NEG); URINE SPECIFIC GRAVITY 1.011 (1.003-1.035); URINE UROBILINOGEN 0.2 MG/DL (NEG)
[2017-04-17 10:41] LABS: AMPHETAMINE POS (NEG); BARBITURATES NEG (NEG); BENZODIAZEPINES NEG (NEG); COCAINE NEG (NEG); MARIJUANA NEG (NEG); OPIATES NEG (NEG); TRICYCLIC ANTIDEPRESSANTS NEG (NEG); U METHADONE NEG (NEG)
== END 2017-04-20 11:20 | DRG 885 ==
LOC: P1E 12:16
PROVIDERS: Psychiatry & Neurology Psychiatry
PROC: HZ2ZZZZ Detoxification Services for Substance Abuse Treatment (ICD-10-PCS; principal; 2017-04-15)
DX: F33.1 Major depressive disorder, recurrent, moderate (principal); F11.20 Opioid dependence, uncomplicated; F15.20 Other stimulant dependence, uncomplicated; E66.9 Obesity, unspecified; F17.200 Nicotine dependence, unspecified, uncomplicated
CPT/HCPCS: 80307; 81003